=== PATIENT | female | born 1985 | race Native Hawaiian/Other Pacific Islander ===

== ENCOUNTER 2017-05-11 07:37 | Emergency (ER) | payer OTHER ==
[~2017-05-11] VITALS: Ht 165.1 cm; Wt 98.4 kg
[2017-05-11 07:54] VITALS: TEMP 97.6
[2017-05-11 08:53] LABS: PLATELET COUNT 280 K/uL (152-353)
[2017-05-11 09:16] LABS: POTASSIUM 4.8 mmol/L (3.6-5.2); SODIUM 131 mmol/L (136-145)
[2017-05-11 10:54] VITALS: BP 122/86
== END 2017-05-11 10:54 | disposition home or self-care (01) ==
LOC: ED 07:37
PROVIDERS: Family Medicine
DX: R10.84 Generalized abdominal pain (principal); K52.89 Other specified noninfective gastroenteritis and colitis; K21.9 Gastro-esophageal reflux disease without esophagitis; R19.7 Diarrhea, unspecified; R11.2 Nausea with vomiting, unspecified
CPT/HCPCS: 80053; 81000; 85027; 99283

== ENCOUNTER 2019-03-01 23:27 | Emergency (ER) | payer BC ==
[~2019-03-01] VITALS: Ht 165.1 cm; Wt 99.8 kg
[~2019-03-01 23:27] MED LIST: GLIP10TA55 PO; METFORMIN HYDR850 MG PO
[2019-03-02 00:54] LABS: PLATELET COUNT 319 K/uL (152-353)
[2019-03-02 01:07] LABS: SODIUM 137 mmol/L (136-145)
[2019-03-02 02:32] VITALS: BP 119/77; TEMP 97.9
== END 2019-03-02 02:34 | disposition home or self-care (01) ==
LOC: ED 23:27
PROVIDERS: Family Medicine
DX: R06.4 Hyperventilation (principal); E11.65 Type 2 diabetes mellitus with hyperglycemia; F41.0 Panic disorder [episodic paroxysmal anxiety]
CPT/HCPCS: 36415; 80053; 81000; 82550; 84484; 85027; 93005; 96375; 99284

== ENCOUNTER 2019-07-06 05:55 | Emergency (ER) | payer BC ==
[~2019-07-06] VITALS: Ht 165.1 cm; Wt 99.8 kg
[2019-07-06 06:10] VITALS: BP 118/81; TEMP 98.7
== END 2019-07-06 07:02 | disposition home or self-care (01) ==
LOC: ED 05:55
DX: N30.90 Cystitis, unspecified without hematuria (principal); N39.0 Urinary tract infection, site not specified
CPT/HCPCS: 81000; 81025; 99282

== ENCOUNTER 2021-02-21 12:05 | Outpatient (CLI) | payer OTHER | END 2021-02-21 14:00 | disposition home or self-care (01) | LOC: RAD 12:05 | PROVIDERS: ATTEND Nurse Practitioner Family | DX: M25.521 Pain in right elbow (principal) ==

== ENCOUNTER 2021-11-21 07:30 | Emergency (ER) | payer OTHER ==
[~2021-11-21] VITALS: Ht 165.1 cm; Wt 99.8 kg
[2021-11-21 07:35] VITALS: BP 175/114; TEMP 97.9
[2021-11-21 08:17] LABS: PLATELET COUNT 291 K/uL (152-353)
[2021-11-21 08:23] LABS: SODIUM 135 mmol/L (136-145)
== END 2021-11-21 12:16 | disposition home or self-care (01) ==
LOC: ED 07:30
PROVIDERS: Emergency Medicine
DX: R10.84 Generalized abdominal pain (principal)
CPT/HCPCS: 80053; 81000; 81025; 83690; 84484; 85027; 85610; 87086; 87088; 93005; 96360; 96365; 96375; 99284; J1956; J2270; J2405; J3490; Q9963

== ENCOUNTER 2021-11-22 04:06 | Emergency (ER) | payer OTHER ==
[~2021-11-22] VITALS: Ht 165.1 cm; Wt 102.1 kg
[2021-11-22 04:11] VITALS: BP 100/66; TEMP 98.7
== END 2021-11-22 04:24 | disposition home or self-care (01) ==
LOC: ED 04:06
DX: Z53.21 Procedure and treatment not carried out due to patient leaving prior to being seen by health care provider (principal)
CPT/HCPCS: 99281

== ENCOUNTER 2022-08-29 20:07 | Emergency (ER) | payer OTHER ==
[~2022-08-29] VITALS: Ht 165.1 cm; Wt 102.1 kg
[2022-08-29 21:55] VITALS: BP 128/75; TEMP 98.1
== END 2022-08-29 22:00 | disposition home or self-care (01) ==
LOC: ED 20:07
DX: S30.0XXA Contusion of lower back and pelvis, initial encounter (principal); W00.0XXA Fall on same level due to ice and snow, initial encounter; Y92.89 Other specified places as the place of occurrence of the external cause
CPT/HCPCS: 81025; 96372; 99283; J2270; J2550

== ENCOUNTER 2022-09-07 08:20 | Outpatient (CLI) | payer OTHER | END 2022-09-07 19:50 | disposition home or self-care (01) | LOC: RAD 08:20 | PROVIDERS: ATTEND Nurse Practitioner Family | DX: M53.3 Sacrococcygeal disorders, not elsewhere classified (principal) ==